=== PATIENT | male | born 1945 | race Caucasian/White ===

== ENCOUNTER → 2017-11-15 | Outpatient (CLI) | payer MEDICARE, MEDICAID ==
--- NOTE | 2017-11-15 12:46 | PCVCIMAG ---
EXAM: BILATERAL CAROTID DUPLEX INDICATION: Carotid Occlusive Disease. FINDINGS: Doppler Measurements (centimeters per second): RIGHT: Peak CCA-26, Peak ECA-443, Diastolic ICA-65, Peak ICA-381, ICA/CCA Ratio-15.6. LEFT: Peak CCA-99, Peak ECA-179, Diastolic ICA-47, Peak ICA-159, ICA/CCA Ratio-1.6. RIGHT CAROTID: The carotid bulb has severe plaque. The proximal internal carotid artery shows 95% stenosis. The common carotid artery shows no significant stenosis. The external carotid artery shows 95% stenosis. LEFT CAROTID: The carotid bulb has moderate plaque. The proximal internal carotid artery shows 50% stenosis. The common carotid artery shows no significant stenosis. The external carotid artery shows 50% stenosis. Antegrade flow in both vertebral arteries. IMPRESSION: Critical 95% stenosis of the right internal carotid artery with severe plaque with blunted arterial waveforms in the more distal internal carotid artery. 50% stenosis of the left internal carotid artery with moderate plaque. Patient will have carotid angiogram later this week. LOC:[id number]
== END | disposition home or self-care (01) ==
LOC: PCVCCLINIC 10:34
PROVIDERS: ATTEND Internal Medicine Cardiovascular Disease
DX: Z01.818 Encounter for other preprocedural examination (principal); I25.10 Atherosclerotic heart disease of native coronary artery without angina pectoris; I65.23 Occlusion and stenosis of bilateral carotid arteries; I12.9 Hypertensive chronic kidney disease with stage 1 through stage 4 chronic kidney disease, or unspecified chronic kidney disease; E11.22 Type 2 diabetes mellitus with diabetic chronic kidney disease; N18.6 End stage renal disease; E11.40 Type 2 diabetes mellitus with diabetic neuropathy, unspecified; I73.9 Peripheral vascular disease, unspecified; E78.00 Pure hypercholesterolemia, unspecified; C67.9 Malignant neoplasm of bladder, unspecified; I25.5 Ischemic cardiomyopathy; R94.39 Abnormal result of other cardiovascular function study; Z95.1 Presence of aortocoronary bypass graft; Z79.4 Long term (current) use of insulin; Z99.2 Dependence on renal dialysis; Z87.891 Personal history of nicotine dependence; Z79.82 Long term (current) use of aspirin
CPT/HCPCS: 80061; 93005; 93880; G0463

== ENCOUNTER → 2017-11-17 | Outpatient (CLI) | payer MEDICARE, MEDICAID ==
[~2017-11-17] MED LIST: ASPIRIN 325 MG TABLET ONE; CLOPIDOGREL BISULFATE 75 MG TABLET ONE; DIAZEPAM 10 MG TABLET. ONE; HEPARIN SODIUM 5,000 UNIT/ML VIAL for PCVC. ONE; HEPARIN for ARTERIAL LINE 1,500 ML ONE; IODIXANOL 270 MG/ML 100 ML VIAL. ONE; IOHEXOL 300 MG/ML 100ML VIAL. ONE; IOHEXOL 350 MG/ML 100 ML VIAL. ONE; LIDOCAINE 1%/EPI 1:100,000 20 ML VIAL. ONE; MIDAZOLAM HCL/PF 2 MG/2 ML VIAL. ONE; WATER FOR INJECTION,STERILE 0 ML IJ ONE; ceFAZolin SODIUM 1 GM VIAL ONE; fentaNYL PF VIAL 100 MCG/2 ML VIAL ONE; hydrALAZINE 20 MG/ML VIAL. ONE
--- NOTE | 2017-11-17 16:24 | PCVCINTER ---
EXAM: 1. CERVICOEPHALIC ARCH AORTOGRAM. 2. BILATERAL CAROTID ANGIOGRAPHY. 3. LEFT VERTEBROBASILAR ANGIOGRAPHY. 4. BILATERAL RENAL ANGIOGRAPHY. 5. AORTOGRAM AND BILATERAL LOWER EXTREMITY ANGIOGRAPHY. INDICATION: Carotid occlusive disease. Left subclavian steal. Hypertension. Renal atherosclerosis. Peripheral arterial disease. Leg pain. Previous leg bypasses. PROCEDURE: Procedure and risks of the procedures listed above were discussed with the patient and consent obtained. Risks including but not limited to bleeding, infection, stroke, vascular injury, neurologic injury, embolization, allergic reactions, and contrast-induced nephropathy requiring dialysis were discussed as appropriate and consent obtained. Patient was placed on the angiography table. IV conscious sedation was used throughout procedure with appropriate monitoring from 2:00 PM through 3:15 PM. The right groin was prepped and draped in the normal sterile fashion. Ultrasound was used to interrogate the right groin and demonstrate the right common femoral artery. An ultrasound image was saved. Under ultrasound guidance a 21 gauge needle was used to gain access into the right common femoral artery and a 6F vascular sheath was placed. Catheter was placed into the ascending aorta and cervicocephalic aortic arch angiogram performed. Catheter was placed into the suprarenal abdominal aorta and abdominal aortic angiogram performed. Catheter was positioned at the aortic bifurcation and bilateral oblique views of the pelvis obtained. Catheter was placed into the right common carotid artery and right common carotid angiogram performed. Catheter was placed into the left common carotid artery and left common carotid angiogram performed. Catheter was placed into the left subclavian artery and left vertebro-basilar angiogram performed. Catheter was placed into the right renal artery and right renal angiogram performed. Catheter was placed into the left renal artery and left renal angiogram performed. Catheter was placed to the level of the right external iliac artery and right leg runoff angiography performed. Catheter was placed to the level of the left external iliac artery and left leg runoff angiography performed. Dr. Cooper joined the procedure and he then performed coronary angiography. Please see his separate dictation for full details. Catheters and wires were removed and hemostasis obtained using the FISH device. No immediate complications. FINDINGS: Cervicocephalic arch aortogram: The innominate artery, left common carotid artery, subclavian artery origins are all widely patent. The right left subclavian arteries are patent. Cranial directed flow in both vertebral arteries. There is delayed slow flow in the right common carotid artery due to the critical distal right common and proximal right internal carotid artery stenosis discussed below. Right common carotid angiogram: This injection only slowly fills the the right middle cerebral distribution. The right cavernous and petrous carotid arteries are patent. There is extensive bulky plaque in the distal right common carotid artery which results in 99% stenosis. There is also extensive plaque involving the proximal approximately 3 cm of the internal carotid artery results in areas of 80 and 90% stenosis. While the filling defects in the distal common carotid and proximal internal carotid artery most likely represent extensive exophytic plaques the possibility of at least small areas intraluminal thrombus are not completely excluded. Left common carotid angiogram: This injection fills the right and left anterior and middle cerebral distributions and the left posterior cerebral distribution all of which are unremarkable.. The cavernous and petrous carotid artery show satisfactory patency. Moderate mildly irregular plaque proximal internal carotid artery causes mild 30% stenosis. The common and external carotid artery are patent. Left vertebrobasilar angiogram: The left vertebral artery is patent. The basilar artery is patent. The right posterior cerebral artery shows good patency throughout. Mild hypoplasia of the left P1 segment. The left posterior cerebral artery is otherwise unremarkable. Abdominal aorta: There is one right and one left renal artery. Poor intrarenal flow is identified consistent with patient's known chronic renal failure. Moderate plaque infrarenal abdominal aorta without significant stenosis. Pelvis: The right common and external iliac arteries show good patency. Occlusion right internal iliac artery. Right common femoral and profunda femoral arteries are patent. 40% stenosis origin left common iliac artery. Previous stent mid left common iliac artery showing adequate patency. Left external iliac artery is patent. Left common femoral artery is patent. Left profunda femoral artery is occluded. Right renal angiogram: Moderate plaque proximal vessel. The main renal artery is widely patent. Poor intrarenal flow consistent with chronic renal failure. Left renal angiogram: Moderate plaque proximal vessel causes 80% stenosis. Otherwise no large vessel stenosis. Poor intrarenal flow consistent with chronic renal failure. Right leg: The lower brule superficial femoral artery has multiple areas of high-grade calcified stenosis in its mid and distal portion with occlusion of the right lower brule popliteal artery. Postsurgical changes of femoral to distal popliteal artery bypass vein graft is present. There is critical 99% stenosis at the proximal anastomosis of this graft which results in delayed flow in the graft. No additional intragraft stenoses are identified. The distal anastomosis appears satisfactory. The posterior tibial and peroneal arteries are occluded throughout. The anterior tibial artery shows mild scattered disease but is otherwise continuous to runoff into the dorsalis pedis. Left leg: The lower brule superficial femoral artery shows long segment occlusion. There is a PTFE [id number] popliteal bypass graft. The proximal and distal anastomoses are patent and there is good flow throughout the graft. There are several areas of moderately high-grade and high-grade stenoses throughout the mid popliteal artery distal to the anastomosis. The posterior tibial arteries occluded throughout its length. The anterior tibial and peroneal arteries show satisfactory patency to provide runoff into the foot. IMPRESSION: Critical 99% distal right common carotid artery stenosis and 80-90% proximal right internal carotid artery stenoses caused by extensive exophytic plaque which results in slow right carotid flow as reviewed above. 30% left internal carotid artery stenosis is not flow-limiting. 99% stenosis at the proximal anastomosis of the right femoral-distal popliteal vein graft with resulting slow intragraft flow. 40% stenosis origin left common iliac artery. LOC:[id number]
--- NOTE | 2017-11-17 17:26 | PCVCINTER ---
APPROVED REPORT Study performed: 11/17/2017 14:11:53 Patient Details Patient Status: Out-Patient Room #: 3 The patient is a 72 year-old Male Event Personnel Pollo Montoya RT(R), Nanette Chen RT(R) Raman Cooper M.D. Risk Factors Arterial HypertensionDysplipidemia (Type: 1), Peripheral Vascular Disease, HypercholesterolemiaPhysical Activity, Diabetes Tobacco History (Former), Dialysis Previous Procedures/Diagnoses Previous CABGPrevious PCI, CAD, Diabetes, Hypertension, Renal failure->Dialysis, LV dysfunction, PVD Procedure Narrative A 6 sheath was inserted into the right femoral artery. Coronary angiography was performed using coronary diagnostic catheters. The right coronary system was accessed and visualized with a JR4 catheter. The left coronary system was accessed and visualized with a JL4 catheter. The left ventricle was accessed and visualized with a Straight Pigtail catheter. Closure device was deployed with a 6 Fr FISH. Hemostasis was obtained with manual pressure following sheath removal without any complications. The patient tolerated the procedure well and there were no complications associated with the procedure. There was no hematoma. Hemodynamics The aortic pressure is 110/63 mmHg with a mean of 87 mmHg. The left ventricular pressure is 128/19 mmHg with a mean of 26 mmHg. Conclusion #1 moderate severe global hypokinesis EF 25-30% range #2 left main mildly disease giving rise to essentially occluded LAD circumflex system. #3 a RESTREPO to an LAD is intact with mild irregularities retrograde filling a diagonal system in addition. No occlusive disease #3 the [place] right coronary artery is essentially occluded proximally and distally #4 SVG to the PDA is widely patent with minimal irregularities. PDA is retrograde filling the ANA with mild irregularity #5 a radial graft filling a small circumflex OM system. Moderate lesion at the anastomosis that this is very small area of distribution #6 diagonal graft is an SVG with mild irregularities filling a relatively small diagonal system. Recommendations and plan or continue aggressive risk factor modification. There is no indication for intervention. These grafts were for the most part well preserved. Moderate global hypokinesis is noted.
== END | disposition home or self-care (01) ==
LOC: PCVCINTER 14:42
PROVIDERS: ATTEND Internal Medicine Cardiovascular Disease
DX: I25.10 Atherosclerotic heart disease of native coronary artery without angina pectoris (principal); I73.9 Peripheral vascular disease, unspecified; E78.5 Hyperlipidemia, unspecified; I12.0 Hypertensive chronic kidney disease with stage 5 chronic kidney disease or end stage renal disease; E11.22 Type 2 diabetes mellitus with diabetic chronic kidney disease; N18.6 End stage renal disease; Z99.2 Dependence on renal dialysis; Z72.0 Tobacco use; Z95.1 Presence of aortocoronary bypass graft; Z79.899 Other long term (current) drug therapy
CPT/HCPCS: 36223; 36225; 36246; 36252; 75716; 76937; 93459; 99152; 99153; C1751; C1760; C1769; C1894; J1644; J2250; J3010; J3490; Q9967; J0360; J0690